=== PATIENT | female | born 1970 | race Caucasian/White ===

== ENCOUNTER 2021-09-15 13:00 | Emergency (ER) | payer OTHER ==
[~2021-09-15 13:00] MED LIST: AUGMENTIN 875-1 EACH PO; HYDROCODON-ACE1 EAC2 PO
[2021-09-15 13:36] LABS: HEMOGLOBIN 11.2 gm/dl (12.3-15.3); RED BLOOD COUNT 4.63 M/UL (4.00-5.10); WHITE BLOOD COUNT 5.3 K/UL (4.5-11.0)
[2021-09-15 15:01] LABS: BUN/CREATININE RATIO 11 (0-10)
== END 2021-09-15 16:45 | disposition home or self-care (01) ==
LOC: ER1 13:00
PROVIDERS: Emergency Medicine
DX: R53.1 Weakness (principal); I10 Essential (primary) hypertension; Z79.82 Long term (current) use of aspirin
CPT/HCPCS: 71045; 80053; 81001; 82550; 82553; 83874; 84484; 84703; 85025; 93005; 99285

== ENCOUNTER → 2021-10-31 | Outpatient (CLI) | payer OTHER | LOC: HEART 5 10:39 | DX: R07.9 Chest pain, unspecified (principal); R06.02 Shortness of breath; I34.0 Nonrheumatic mitral (valve) insufficiency | CPT/HCPCS: 93306 ==